=== PATIENT | male | born 1985 | race Caucasian/White ===

== ENCOUNTER 2016-05-18 16:21 | Inpatient (IN) | payer OTHER ==
--- NOTE | ~2016-05-18 | PN ---
Unit #: [id number] #: [id number] Patient: NINO THOMAS [id number] [facility] [address] [place] [address] [id number] I MR#: [id number] NAME: NINO THOMAS ROOM: 13 Age: 30 Sex: M Admission Date: 05/18/2016 : 1985 Attending Physician: Keke Torrez M.D. Admitting Physician: Keke Torrez M.D. Primary Care Physician: Primary Care Physician Vicki HERRERA NOTES DATE OF SERVICE: 05/25/2016 SUBJECTIVE Mr. Thomas is a 30-year-old white male, who was seen today and chart was reviewed and the case was discussed with the staff. He has been anxious, withdrawn, and rather seclusive to himself. Meanwhile, he has been cooperative with the treatment recommendations and has been taking the medications and tolerating them fairly well with no reported side effects. MENTAL STATUS EXAMINATION Young white male, who was casually dressed with fair personal hygiene, appears to be in no acute distress or discomfort. He was awake and alert on interaction with intact orientation. His mood was anxious with a congruent affect. He denies any suicidal or homicidal ideation. His insight and judgment remain slightly impaired. TREATMENT PLAN 1. We will continue him on his current medications and treatment protocol. We will monitor his response to the medications and make further adjustments as needed. 2. We will continue to follow up. Dictated by... Lenore Rios/perez TD: 05/25/2016 09:43 JOB #: [id number] [facility] PROGRESS NOTES X Keke Torrez MD PROGRESS NOTE
--- NOTE | ~2016-05-18 | PN ---
Unit #: [id number] #: [id number] Patient: NINO THOMAS [id number] [facility] [address] [place] [address] [id number] I MR#: [id number] NAME: NINO THOMAS ROOM: [facility] Age: 30 Sex: M Admission Date: 05/18/2016 : 1985 Attending Physician: Keke Torrez M.D. Admitting Physician: Keke Torrez M.D. Primary Care Physician: Primary Care Physician Vicki FLAHERTY PROGRESS NOTES DATE May 24, 2016 DISCUSSION Mr. Thomas is a 30-year-old white male, who was seen today and chart was reviewed and the case was discussed with the staff. He has been anxious, withdrawn, and rather seclusive to himself. Meanwhile, he has been cooperative with the treatment recommendations and he has been taking the medications, and tolerating them fairly well with no reported side effects. MENTAL STATUS EXAMINATION Young white male, who was casually dressed with fair personal hygiene and appears to be in no acute distress or discomfort. He was awake and alert on interaction with intact orientation. His mood is anxious with a congruent affect. His speech is slow and goal-directed. He denies any suicidal or homicidal ideations, and also denies any auditory or visual hallucinations. His insight and judgment remain slightly impaired. TREATMENT PLAN 1. We will continue him on his current medications and treatment protocol, and will monitor his response to the medications, and make further adjustments as needed. 2. We will continue to followup. Dictated by... Lenore Rios/porter TD: 05/25/2016 11:50 JOB #: [id number] Unit #: [id number] #: [id number] Patient: NINO THOMAS PROGRESS NOTES X Keke Torrez MD PROGRESS NOTE
--- NOTE | ~2016-05-18 | PN ---
Unit #: [id number] #: [id number] Patient: NINO THOMAS [id number] [facility] [address] [place] [address] [id number] I MR#: [id number] NAME: NINO THOMAS ROOM: 13 Age: 30 Sex: M Admission Date: 05/18/2016 : 1985 Attending Physician: Keke Torrez M.D. Admitting Physician: Keke Torrez M.D. Primary Care Physician: Primary Care Physician Vicki HERRERA NOTES DATE 05/19/2016 DISCUSSION Mr. Thomas is a 30-year-old, white male who was seen today and chart was reviewed and case was discussed with the staff. He has been anxious, withdrawn and rather seclusive to himself. Meanwhile, he has been cooperative with the treatment recommendations. He has been taking the medication and tolerating them fairly well with no reported side effects. MENTAL STATUS EXAM Young white male who was casually dressed with fair personal hygiene, appears to be in no acute distress or discomfort. He was awake and alert on interaction with intact orientation. His mood was anxious with congruent affect. He denies any suicidal or homicidal ideation. Also, denies any auditory or visual hallucinations. His insight and judgement remains slightly impaired. TREATMENT PLAN 1. We will continue him on his current medications and treatment protocol. We will monitor his response to the medication and make further adjustments as needed. 2. We will continue to follow up. Dictated by... Lenore Rios/eliana TD: 05/20/2016 00:40 JOB #: [id number] Unit #: [id number] #: [id number] Patient: NINO THOMAS PEREZREBECCA PROGRESS NOTES X Keke Torrez MD PROGRESS NOTE
--- NOTE | ~2016-05-18 | PN ---
Unit #: [id number] #: [id number] Patient: NINO THOMAS [id number] [facility] [address] [place] [address] [id number] I MR#: [id number] NAME: NINO THOMAS ROOM: 13 Age: 30 Sex: M Admission Date: 05/18/2016 : 1985 Attending Physician: Keke Torrez M.D. Admitting Physician: Keke Torrez M.D. Primary Care Physician: Primary Care Physician Vicki HERRERA NOTES DATE May 21, 2016 DISCUSSION Mr. Thomas is a 30-year-old white male, who was seen today and chart was reviewed and the case was discussed with the staff. He has been anxious, withdrawn, and rather seclusive to himself. Meanwhile, he has been taking the medications and tolerating them fairly well with no reported side effects. MENTAL STATUS EXAMINATION Young white male, who was casually dressed with fair personal hygiene and appears to be in no acute distress or discomfort. He was awake and alert on interaction with intact orientation. His mood was anxious with a congruent affect. His speech is slow and goal-directed. He denies any suicidal or homicidal ideations. His insight and judgment remain slightly impaired. TREATMENT PLAN 1. We will continue him on his current medications and treatment protocol, and will monitor his response to the medications, and make further adjustments as needed. 2. We will continue to followup. Dictated by... Lenore Rios/porter TD: 05/23/2016 12:26 JOB #: [id number] Unit #: [id number] #: [id number] Patient: NINO THOMAS PEREZREBECCA PROGRESS NOTES X Keke Torrez MD PROGRESS NOTE
--- NOTE | ~2016-05-18 | PN ---
Unit #: [id number] #: [id number] Patient: NINO FIELDS [id number] [facility] [address] [place] [address] [id number] I MR#: [id number] NAME: NINO FIELDS ROOM: 13 Age: 30 Sex: M Admission Date: 05/18/2016 : 1985 Attending Physician: Keke Torrez M.D. Admitting Physician: Keke Torrez M.D. Primary Care Physician: Primary Care Physician Vicki FLAHERTY PROGRESS NOTES DATE OF SERVICE: 05/22/2016 SUBJECTIVE Mr. Madrid is a 30-year-old white male, who was seen today and chart was reviewed and the case was discussed with the staff. He has been anxious, withdrawn, and rather seclusive to himself. Meanwhile, he has been pushing to leave and has been getting agitated and irritable and showing very poor insight into his situation and not taking any responsibility for his behavior. MENTAL STATUS EXAMINATION Young white male, who was casually dressed with fair personal hygiene, appears to be in no acute distress or discomfort. He was awake and alert on interaction with intact orientation. His mood was anxious with a congruent affect. His speech was slow and goal directed. He denies any suicidal or homicidal ideations. His insight and judgment remain slightly impaired. TREATMENT PLAN We will continue him on his current treatment protocol. We will monitor response and make further adjustments as needed. Dictated by... Lenore Rios/perez TD: 05/22/2016 12:44 JOB #: [id number] [facility] PROGRESS NOTES X Keke Torrez MD PROGRESS NOTE
--- NOTE | ~2016-05-18 | PA ---
Unit #: [id number] #: [id number] Patient: NINO FIELDS [id number] [facility] [address] [place] [address] [id number] I MR#: [id number] NAME: NINO FIELDS ROOM: P113 Age: 30 Sex: M Admission Date: 05/18/2016 : 1985 Date of Assessment: Attending Physician: Keke Torrez M.D. Admitting Physician: Keke Torrez M.D. Primary Care Physician: Primary Care Physician No PSYCHIATRIC ASSESSMENT DATE OF SERVICE 05/18/2016. IDENTIFYING DATA Mr. Lo is a 30-year-old single white male who is a resident of [place], [place] and was self-referred to the hospital who was accompanied by his mother and father. CHIEF COMPLAINT "I have been using methamphetamine ." HISTORY OF PRESENT ILLNESS Mr. Lo is a 30-year-old white male who was brought to the hospital by both of his parents because they are concerned about his bizarre behavior. The patient reports 2 years ago, he was on methamphetamine. He started seeing colors and reports he was anxious, began to rant on and off, and started having unrealistic experience and he was involved with colors and that he was supposed to follow those colors and was seen to be exhibiting acute psychosis with completely out of touch with reality behavior, significant paranoia and reports the [place] and [place] are after him because they want him to be in the cartel and the patient's size was really big and he was visually distraught and confused. Mother reports history of bipolar schizophrenia in the family and the patient has been peeping into windows and looking around bushes as if someone is following him. The patient has been digging in the yard and running off intermittently because he is delusional. He was seen to be unable to carry on meaningful conversation, was completely out of touch with reality, significant paranoia and delusional behavior. Family reports that he has been taking off in the middle of the night in the people's yards and digging in their grass and looking in their windows and as such, has been seen to be a significant danger to self and as such, recommendation for inpatient level of care was made. SUBSTANCE ABUSE HISTORY The patient has history of experimentation with alcohol, cocaine, opioids, methamphetamine and currently it appears methamphetamine has been his drug of choice as he reports that he has been using a gram of methamphetamine a day with the last use being a day before coming to the hospital. PAST PSYCHIATRIC HISTORY The patient has had history of inpatient psychiatric hospitalization at [facility] in 2016, however, review of the medical records indicated that currently is not active in any treatment program, is not Unit #: [id number] #: [id number] Patient: NINO FIELDS seeing a psychiatrist, and not taking any psychotropic medications. PAST MEDICAL HISTORY No acute or chronic medical illnesses. ALLERGIES No known medication allergies. CURRENT MEDICATIONS None. PERSONAL AND SOCIAL HISTORY A 30-year-old white male who reports that he is single, unemployed, and lives at home with his parents and has fairly decent social support system. MENTAL STATUS EXAMINATION Young white male who was casually dressed with fair personal hygiene, appears to be in no acute distress or discomfort. He was awake and alert on interaction with intact orientation to time, place, and person. His mood was anxious and depressed with a congruent affect. His speech was slow and restricted in content. His thought processes were disorganized with some looseness of associations and suicidal ideations. His insight and judgment remain significantly impaired. DIAGNOSTIC IMPRESSION Psychiatric: Bipolar disorder, most recent episode manic with psychosis and methamphetamine dependence, moderate. Medical: None. Stressors: Moderate psychosocial stressors. TREATMENT PLAN 1. The patient has presented with history of mood disorder and psychosis and substance abuse and has been decompensating and will need inpatient hospitalization for safety and stabilization. We will start him back on his home medications. We will adjust the medications and monitor response. 2. Supportive therapy was provided to the patient. 3. Safe, structured, and nourishing environment will be reported. ESTIMATED LENGTH OF STAY 5 to 7 days. ABILITY TO HELP SELF Limited. WILLINGNESS TO HELP SELF The patient appears to be willing to help self. STRENGTHS 1. Communicative. 2. Cooperative. PROBLEMS 1. Chronic dysphoric symptoms. 2. Chronic chemical dependency. 3. Poor social support system. DISCHARGE CRITERIA This will be contingent upon the patient's ability to show resolution of his psychosis and his ability to stay safe to himself, particularly after Unit #: [id number] #: [id number] Patient: MCGAHEY,NINO discharge from the hospital. Dictated by... Lenore Rios/perez TD: 05/19/2016 20:51 JOB #: [id number] PSYCHIATRIC ASSESSMENT X Keke Torrez MD PSYCHIATRIC ASSESSMENT
--- NOTE | ~2016-05-18 | DS ---
Unit #: [id number] #: [id number] [facility] [id number] [facility] [address] [place] [address] [id number] I MR#: [id number] NAME: NINO THOMAS ROOM: P113 Age: 30 Sex: M Admission Date: 05/18/2016 : 1985 Discharge Date: Attending Physician: Keke Torrez M.D. Primary Care Physician: Primary Care Physician No DISCHARGE SUMMARY IDENTIFYING DATA Mr. Thomas is a 30-year-old single white male who is a resident of [place], [place] and was self-referred to the hospital was accompanied by his mother. DISCHARGE DIAGNOSES Psychiatric: Bipolar disorder, most recent episode manic with psychosis; methamphetamine dependence, moderate. Medical: None. Stressors: Moderate psychosocial stressors. HISTORY OF PRESENT ILLNESS Please see initial psychiatric evaluation for details. PAST PSYCHIATRIC HISTORY Please see initial psychiatric evaluation for details. PAST MEDICAL HISTORY Please see initial psychiatric evaluation for details. HOSPITAL COURSE The patient was admitted to the adult psychiatric unit at [facility] melba Gutierrez and was oriented to the hospital environment. Routine p.r.n. medications were initiated and upon initial presentation, he was seen to be acutely psychotic with bizarre behavior, looseness of association, and very uncooperative with treatment recommendations and exhibiting significant psychosis and Zyprexa 10 mg b.i.d. was started here and he was seen to be refusing to take the medications in the beginning and then he was forcing to leave the hospital; however, he was encouraged to show better compliance with treatment recommendations. He finally started taking the medications and then seen to be calm and cooperative. No agitation, aggression, or irritability was noticed and as such, it was decided that he will be discharged home and will continue treatment on an outpatient basis. DISCHARGE MEDICATIONS Zyprexa 10 mg b.i.d. for depression. DISCHARGE CONDITION Stable. PROGNOSIS Fair. Unit #: [id number] #: [id number] Patient: NINO THOMAS Dictated by... Lenore Rios/perez TD: 05/26/2016 06:48 JOB #: [id number] DISCHARGE SUMMARY X Keke Torrez MD SUMMARY
--- NOTE | ~2016-05-18 | PN ---
Unit #: [id number] #: [id number] Patient: NINO HACKETT [id number] [facility] [address] [place] [address] [id number] MR#: [id number] NAME: NINO HACKETT ROOM: P113 Age: 30 Sex: M Admission Date: 05/18/2016 : 1985 Attending Physician: Keke Torrez M.D. Admitting Physician: Keke Torrez M.D. Primary Care Physician: Primary Care Physician Vicki HERRERA NOTES DATE OF SERVICE: 05/23/2016 SUBJECTIVE Mr. Hackett is a 30-year-old white male, who was seen today and chart was reviewed and the case was discussed with the staff. He has been anxious, withdrawn, though has not shown any agitation, irritability, or behavioral problems, and has been cooperative with treatment recommendations and has been taking the medications and tolerating them fairly well with no reported side effects. MENTAL STATUS EXAMINATION Young white male, who was casually dressed with fair personal hygiene, appears to be in no acute distress or discomfort. He was awake and alert on interaction with intact orientation. His mood was anxious with a congruent affect. His speech was slow and goal directed. He denies any suicidal or homicidal ideations. His insight and judgment remain slightly impaired. TREATMENT PLAN 1. We will continue him on his current medications and treatment protocol. We will monitor his response to medications and make further adjustments as needed. 2. We will continue to follow up. Dictated by... Lenore Rios/perez TD: 05/24/2016 04:59 JOB #: [id number] [facility] PROGRESS NOTES X Keke Torrez MD PROGRESS NOTE
--- NOTE | ~2016-05-18 | HP ---
Unit #: [id number] #: [id number] Patient: NINO FIELDS [id number] [place] [address] [id number] I MR#: [id number] NAME: NINO FIELDS ROOM: 13 Age: 30 Sex: M Admission Date: 05/18/2016 : 1985 Attending Physician: Keke Torrez M.D. Admitting Physician: Keke Torrez M.D. Primary Care Physician: Primary Care Physician No HISTORY AND PHYSICAL HISTORY OF PRESENT ILLNESS Nino is a 30-year-old admitted to [address] [place] [address] because of his drug use and psychotic behavior. He is a poor historian, so his history is taken from his chart. PAST MEDICAL HISTORY Long history of illicit substance abuse to include methamphetamine and IV drugs. PAST SURGICAL HISTORY 1. Right hand. 2. PE tubes. ALLERGIES No known drug allergies. SOCIAL HISTORY Smokes one pack per day. Drinks alcohol rarely. Has a long history of polysubstance abuse to include methamphetamine and IV drugs. FAMILY HISTORY Medically noncontributory. REVIEW OF SYSTEMS He does not answer any questions appropriately. There are no reports of nausea, vomiting, or diarrhea. He has had no cough or increase temperature. CURRENT MEDICATIONS 1. Zyprexa 10 mg b.i.d. 2. Thorazine 50 mg q. 6 hours p.r.n. 3. Milk of Magnesia p.r.n. 4. Maalox p.r.n. 5. Tylenol p.r.n. 6. Nicotine patch 14 mg q. day. PHYSICAL EXAMINATION GENERAL: Alert, well nourished. No apparent distress. VITAL SIGNS: Blood pressure 110/66, heart rate 80, respirations 16, and temperature 98.6. WEIGHT: 151. HEIGHT: 6 feet 1 inches. SKIN: Warm and dry without rash or lesion. Unit #: [id number] #: [id number] Patient: NINO FIELDS HEENT: Normocephalic. TMs not viewed. Oral and nasal passages clear. Conjunctivae clear. PERRLA. EOMs intact. NECK: Supple without lymphadenopathy or thyromegaly. HEART: Regular rate and rhythm without murmur. LUNGS: Clear. ABDOMEN: Soft, nontender. : Not done. EXTREMITIES: No evidence of cyanosis, clubbing or edema. Moves all without focal deficit. NEUROLOGICAL: Unable to complete extended exam. Does move all extremities without focal deficit. Hand assistant tennis coach is equal and gait is normal. IMPRESSION Psychiatric admission. RECOMMENDATIONS PSYCHIATRIC: Per psychiatrist. MEDICAL: I see no contraindication to participate in this facility's activities. MEDICAL PROGNOSIS Good. MEDICAL CONDITION Stable. Dictated by... Sherry Washburn P.A.-C. for Lenore Torres/uriah TD: 05/19/2016 14:26 JOB #: [id number] HISTORY AND PHYSICAL X Sherry Washburn X HISTORY AND PHYSICAL
--- NOTE | ~2016-05-18 | PN ---
Unit #: [id number] #: [id number] Patient: NINO THOMAS [id number] [facility] [address] [place] [address] [id number] MR#: [id number] NAME: NINO THOMAS ROOM: 13 Age: 30 Sex: M Admission Date: 05/18/2016 : 1985 Attending Physician: Keke Torrez M.D. Admitting Physician: Keke Torrez M.D. Primary Care Physician: Primary Care Physician Vicki HERRERA NOTES DATE 05/20/2016 DISCUSSION Mr. Thomas is a 30-year-old white male who was seen today and chart was reviewed and case was discussed with the staff. He has been anxious, withdrawn, restless, seclusive to himself. Meanwhile, he has been cooperative with treatment recommendations and has been taking medications and tolerating them fairly well. MENTAL STATUS EXAMINATION Young white male who was casually dressed with fair personal hygiene and appears to be in no acute distress or discomfort. He was awake and alert on interaction with intact orientation. His mood was anxious and depressed with congruent affect. He denies any suicidal or homicidal ideation and also denies any auditory or visual hallucinations. His insight and judgement remains slightly impaired. TREATMENT PLAN 1. Will continue his current medications and treatment protocol. Will monitor his response to the medications and make further adjustments as needed. 2. Will continue to follow up. Dictated by... Lenore Rios/amanda TD: 05/20/2016 16:57 JOB #: [id number] Unit #: [id number] #: [id number] Patient: NINO THOMAS PEREZREBECCA PROGRESS NOTES X Keke Torrez MD PROGRESS NOTE
[2016-05-19 09:56] LABS: BASOPHIL% 0.8 % (0-2.5); EOSINOPHIL# 0.2 X10e3 (0-0.7); EOSINOPHIL% 4.2 % (0.0-7.0); HEMOGLOBIN 16.1 gm/dL (13.0-16.0); LYMPHOCYTE# 1.9 X10e3 (1.0-3.5); MEAN CELL VOLUME 95.2 FL (83-96); MEAN CORPUSCULAR HEMOGLOBIN 32.6 PG (28-34); MEAN CORPUSCULAR HGB CONC 34.2 g/dL (30-36); MEAN PLATELET VOLUME 8.6 FL (6.5-11.5); MONOCYTE# 0.5 X10e3 (0-1.0); NEUTROPHIL# 2.7 X10e3 (1.5-7.1); PLATELET COUNT 183 X10e3 (140-420); RED BLOOD COUNT 4.94 X10e (3.90-5.60); RED CELL DISTRIBUTION WIDTH 13.2 % (11.0-15.5); WHITE BLOOD COUNT 5.4 X10e3 (4.0-10.5)
[2016-05-19 10:02] LABS: DIFF IND NO
[2016-05-19 10:09] LABS: THYROID STIMULATING HORMONE 0.47 uIU/ml (0.34-5.60)
[2016-05-19 10:16] LABS: FREE THYROXIN (T4) 0.91 ng/dL (0.58-1.64)
[2016-05-19 10:27] LABS: ALBUMIN SERUM 4.6 g/dL (3.5-5.0); ALKALINE PHOSPHATASE 72 U/L (32-92); ALT (SGPT) 15 U/L (10-40); AST (SGOT) 18 U/L (10-42); BLOOD UREA NITROGEN 11 mg/dL (9-23); BUN/CREATININE RATIO 9.16; CALCIUM SERUM 10.4 mg/dL (8.4-10.2); CARBON DIOXIDE 28 mmol/L (22-31); CHLORIDE 104 mmol/L (100-111); CREATININE SERUM 1.2 mg/dL (0.6-1.4); GLOM FILT RATE Estimated ABOVE60 mL/min (>60); GLUCOSE FASTING 91 mg/dL (70-110); PROTEIN TOTAL SERUM 7.7 g/dL (6.0-8.3); SODIUM 143 mmol/L (135-145)
== END 2016-05-26 12:00 | DRG 885 ==
LOC: P1S 16:21
PROVIDERS: Psychiatry & Neurology Psychiatry
DX: F31.2 Bipolar disorder, current episode manic severe with psychotic features (principal); F15.20 Other stimulant dependence, uncomplicated; F17.210 Nicotine dependence, cigarettes, uncomplicated
CPT/HCPCS: 80053; 84439; 84443; 85025

== ENCOUNTER 2016-08-10 16:19 | Inpatient (IN) | payer OTHER ==
--- NOTE | ~2016-08-10 | PA ---
Unit #: [id number] #: [id number] Patient: NINO THOMAS [id number] [facility] [address] [place] [address] [id number] MR#: [id number] NAME: NINO THOMAS ROOM: P122 Age: 30 Sex: M Admission Date: 08/10/2016 : 1985 Date of Assessment: 08/11/2016 Attending Physician: Keke Torrez M.D. Admitting Physician: Keke Torrez M.D. Primary Care Physician: Generic Doctor Not In System PSYCHIATRIC ASSESSMENT DATE OF SERVICE 08/11/2016. IDENTIFYING DATA Mr. Thomas is a 30-year-old single white male who is a resident of [place], [place], and was brought to the hospital by his father on a voluntary basis. CHIEF COMPLAINT "Just stressed out." HISTORY OF PRESENT ILLNESS Mr. Thomas is a 30-year-old white male who was self-referred to the hospital. 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 The patient admits being on drugs, amphetamines "a lot a day." He also reports that he used Lortab and a joint today and he has not been able to work all week. He works for a moving company and was seen to be paranoid and having some delusions probably due to methamphetamine use and his last use of methamphetamine was a couple of days ago. He reports that he has been snorting and eating methamphetamine, and reports that his cousin has been leaving clues for him and was seen to be very anxious, irritable, agitated, and exhibiting significant paranoia and delusional behavior, and also reports having suicidal ideation as such recommendation for inpatient level of care for safety and stabilization was made. The patient was transferred to us. SUBSTANCE ABUSE HISTORY The patient reports extensive history of substance abuse and dependence including history of experimentation with alcohol, cannabis, cocaine, acid, opioids, methamphetamine, and benzodiazepines, and currently, it appears that methamphetamine has been his drug of choice though he has been using it along with cannabis. PAST PSYCHIATRIC HISTORY The patient has a history of multiple inpatient psychiatric hospitalizations at [facility] in addition to being at [facility], and has been diagnosed and treated for mood disorder, (1) with psychosis Unit #: [id number] #: [id number] Patient: NINO THOMAS and review of the medical records indicate that he is supposed to be on Zyprexa, but has been noncompliant with medications and as such, has been decompensating. PAST MEDICAL HISTORY No acute or chronic medical illnesses. ALLERGIES No known medication allergies. PERSONAL AND SOCIAL HISTORY A 30-year-old white male who reports that he is single and unemployed and is currently describing himself to be homeless. MENTAL STATUS EXAMINATION Young white male who was casually dressed with fair personal hygiene, appears to be in no acute distress or discomfort. He was awake and alert on interaction with intact orientation to time, place, and person. His mood was anxious and depressed with congruent affect. His speech was slow and restricted in content. His thought processes were disorganized with some looseness of associations and flight of ideas, and paranoid ideations and delusional behavior. His insight and judgment remain significantly impaired. DIAGNOSTIC IMPRESSION Psychiatric: Bipolar disorder, most recent episode depressed, recurrent, moderate, with psychosis; methamphetamine dependence, moderate. Medical: None. Stressors: Moderate psychosocial stressors. TREATMENT PLAN 1. The patient has presented with history of mood disorder and psychosis and has been decompensating, and we will need inpatient hospitalization for detoxification, safety, and stabilization. We will start him back on home medications. We will adjust the medications and monitor response. 2. Supportive therapy was provided to the patient. ESTIMATED LENGTH OF STAY 4 to 5 days. ABILITY TO HELP SELF Limited. WILLINGNESS TO HELP SELF The patient appears to be willing to help self. STRENGTHS 1. Communicative. 2. Cooperative. PROBLEM LIST 1. Chronic dysphoric symptoms. 2. Chronic chemical dependency. 3. Poor social support system. DISCHARGE CRITERIA This will be contingent upon the patient's ability to show resolution of his psychosis and his ability to stay safe to himself, particularly after discharge from the hospital. Unit #: [id number] #: [id number] Patient: NINO THOMAS Dictated by... Lenore Rios/perez TD: 08/11/2016 06:55 JOB #: [id number] PSYCHIATRIC ASSESSMENT Page 1 of 1 X Keke Torrez MD PSYCHIATRIC ASSESSMENT
--- NOTE | ~2016-08-10 | HP ---
Unit #: [id number] #: [id number] Patient: NINO FIELDS [id number] [place] [address] [id number] I MR#: [id number] NAME: NINO FIELDS ROOM: P122 Age: 30 Sex: M Admission Date: 08/10/2016 : 1985 Attending Physician: Keke Torrez M.D. Admitting Physician: Keke Torrez M.D. Primary Care Physician: Generic Doctor Not In System HISTORY AND PHYSICAL HISTORY OF PRESENT ILLNESS Nino is a 30 year old admitted to [address] [place] [address] with depression and verbalizing wanting to hurt himself. PAST MEDICAL HISTORY History of poly illicit substance abuse to include methamphetamine. History of IV drugs. PAST SURGICAL HISTORY 1. Right hand 2. PE tubes ALLERGIES No known drug allergies. SOCIAL HISTORY Smokes one pack per day. Drinks alcohol rarely. Has a long history of polysubstance abuse to include IV methamphetamine. FAMILY HISTORY Medically noncontributory. REVIEW OF SYSTEMS He does not answer questions appropriately. There are no reports of nausea, vomiting or diarrhea. He has had no cough or increased temperature. CURRENT MEDICATIONS 1. Vistaril p.r.n. 2. Desyrel p.r.n. 3. Milk of Magnesia p.r.n. 4. Maalox p.r.n. 5. Tylenol p.r.n. 6. Thorazine p.r.n. 7. Zyprexa 10 mg b.i.d. 8. Nicotine patch 14 mg daily PHYSICAL EXAMINATION GENERAL: Alert, well-nourished, in no apparent distress. VITAL SIGNS: Blood pressure 114/68, heart rate 76, respirations 16, temperature 98.6. WEIGHT: 170 pounds. Unit #: [id number] #: [id number] Patient: NINO FIELDS HEIGHT: 6'1". SKIN: Warm and dry without rash or lesion. HEENT: Normocephalic. TMs not viewed. Oral and nasal passages clear. Conjunctivae clear. Pupils equal, round and reactive to light and accommodation. Extraocular movements intact. NECK: Supple without lymphadenopathy or thyromegaly. HEART: Regular rate and rhythm without murmur. LUNGS: Clear. ABDOMEN: Soft, nontender. : Not done. EXTREMITIES: No evidence of cyanosis, clubbing or edema. Moves all extremities without focal deficit. NEUROLOGICAL: Grossly within normal limits. Cranial Nerves: II: Visual duong are intact. III, IV AND : Extraocular movements are intact. Pupils are equal, round and reactive to light. V: Facial sensation is grossly normal. VII: Facial movements and expression are normal. VIII: Auditory acuity grossly intact. IX, X: Uvula is midline. Phonation is normal. XI: Patient shrugs shoulders and turns head normally. XII: Tongue protrudes in the midline. Sensory and Motor Function: Sensory and motor sensation is grossly normal. Motor: moves all extremities well. Coordination: Gait is normal. Deep Tendon Reflexes: Intact. IMPRESSION Psychiatric admission RECOMMENDATIONS PSYCHIATRIC: Per psychiatrist. MEDICAL: I see no contraindications to participating in facility's activities. MEDICAL PROGNOSIS Good. MEDICAL CONDITION Stable. Dictated by... Sherry Washburn P.A.-C. for Lenore Torres/eliana TD: 08/12/2016 00:04 JOB #: [id number] Unit #: [id number] #: [id number] Patient: NINO FIELDS HISTORY AND PHYSICAL Page 1 of 1 X Sherry Washburn HISTORY AND PHYSICAL
--- NOTE | ~2016-08-10 | PN ---
Unit #: [id number] #: [id number] Patient: NINO THOMAS [id number] [facility] [address] [place] [address] [id number] I MR#: [id number] NAME: NINO THOMAS ROOM: P122 Age: 30 Sex: M Admission Date: 08/10/2016 : 1985 Attending Physician: Keke Torrez M.D. Admitting Physician: Keke Torrez M.D. Primary Care Physician: Margret Doctor Not In System [facility] PROGRESS NOTES DATE 08/12/2016 DISCUSSION Mr. Thomas is a 30-year-old white male with mood disorder who was seen today and chart was reviewed and case was discussed with the staff who report patient remains anxious, withdrawn and seclusive to himself. Upon approach, patient was unable to make eye contact or make conversation and has been very seclusive to himself with blunted affect and minimal interaction and has had persistent depressive symptoms. MENTAL STATUS EXAMINATION Young white male who was casually dressed with fair personal hygiene and appears to be in no acute distress or discomfort. He was awake and alert on interaction with intact orientation. His mood was anxious and depressed with congruent affect. His speech is slow and restricted in content. He reports having suicidal ideation but denies any homicidal ideation. His insight and judgement remains significantly impaired. TREATMENT PLAN 1. Will continue on his current medications and treatment protocol and will monitor his response to the medications and make further adjustments as needed. 2. Will continue to follow up. Dictated by... Lenore Rios/amanda TD: 08/12/2016 20:35 JOB #: [id number] Unit #: [id number] #: [id number] Patient: NINO THOMAS PROGRESS NOTES Page 1 of 1 X Keke Torrez MD X PROGRESS NOTE
--- NOTE | ~2016-08-10 | PN ---
Unit #: [id number] #: [id number] Patient: NINO THOMAS [id number] [facility] [address] [place] [address] [id number] I MR#: [id number] NAME: NINO THOMAS ROOM: P122 Age: 30 Sex: M Admission Date: 08/10/2016 : 1985 Attending Physician: Keke Torrez M.D. Admitting Physician: Keke Torrez M.D. Primary Care Physician: Margret Doctor Not In System [facility] PROGRESS NOTES DATE 08/16/2016 DISCUSSION Mr. Thomas is a 30-year-old white male who was seen today and chart was reviewed and case was discussed with the staff. He has been anxious, withdrawn, depressed and rather seclusive to himself. Meanwhile, he has been taking medications and tolerating them fairly well with no reported side effects. MENTAL STATUS EXAMINATION Young white male who was casually dressed with fair personal hygiene and appears to be in no acute distress or discomfort. He was awake and alert on interaction with intact orientation. His mood was anxious with congruent affect. He denies any suicidal or homicidal ideation and also denies any auditory or visual hallucinations. His insight and judgement remains slightly impaired. TREATMENT PLAN 1. Will continue on his current medications and treatment protocol. Will monitor his response to the medications and make further adjustments as needed. 2. Will continue to follow up. Dictated by... Lenore Rios/amanda TD: 08/16/2016 22:17 JOB #: [id number] Unit #: [id number] #: [id number] Patient: NINO THOMAS PROGRESS NOTES Page 1 of 1 X Keke Torrez MD X PROGRESS NOTE
--- NOTE | ~2016-08-10 | DS ---
Unit #: [id number] #: [id number] Patient: [facility]INO THOMAS [id number] [facility] [place] [address] [id number] I MR#: [id number] NAME: NINO THOMAS ROOM: [facility] Age: 30 Sex: M Admission Date: 08/10/2016 : 1985 Discharge Date: 08/17/2016 Attending Physician: Keke Torrez M.D. Primary Care Physician: Generic Doctor Not In System DISCHARGE SUMMARY IDENTIFYING DATA Mr. Thomas is a 30-year-old single white male, who is a resident of [place], [place], and was brought to the hospital by his father on a voluntary basis. DISCHARGE DIAGNOSES Psychiatric: Bipolar disorder, most recent episode depressed, recurrent, moderate, without psychotic features. Medical: None. Stressors: Moderate psychosocial stressors. HISTORY OF PRESENT ILLNESS Please see initial psychiatric evaluation for details. PAST PSYCHIATRIC HISTORY Please see initial psychiatric evaluation for details. PAST MEDICAL HISTORY Please see initial psychiatric evaluation for details. HOSPITAL COURSE The patient was admitted to the adult psychiatric unit at [facility] melba Gutierrez and was oriented to the hospital environment. Routine p.r.n. medications were initiated, and he was started back on his home medications and medications were adjusted. However, it is noticed that the patient was exhibiting very bizarre behavior, would not interact or socialize and was not really interested much in treatment as he would just eat and sleep, and would not interact with me or follow up with any treatment recommendations; however, Zyprexa was maintained at 10 mg b.i.d. and with no further adjustments being made in his medication, it was decided that he will be discharged home and will continue treatment on an outpatient basis. DISCHARGE MEDICATIONS Zyprexa 10 mg b.i.d. for bipolar. DISCHARGE CONDITION Stable. PROGNOSIS Fair. Dictated by... Unit #: [id number] #: [id number] Patient: NINO THOMAS Keke Torrez M.D. IAA/modl TD: 08/17/2016 06:48 JOB #: [id number] DISCHARGE SUMMARY Page 1 of 1 X Keke Torrez MD DISCHARGE SUMMARY
--- NOTE | ~2016-08-10 | PN ---
Unit #: [id number] #: [id number] Patient: NINO HACKETT [id number] [facility] [address] [place] [address] [id number] I MR#: [id number] NAME: NINO HACKETT ROOM: P122 Age: 30 Sex: M Admission Date: 08/10/2016 : 1985 Attending Physician: Keke Torrez M.D. Admitting Physician: Keke Torrez M.D. Primary Care Physician: Generic Doctor Not In System [facility] PROGRESS NOTES DATE OF SERVICE: 08/14/2016 SUBJECTIVE Mr. Hackett is a 30-year-old white male, who was seen today and chart was reviewed and case was discussed with the staff. He has been very seclusive to himself and has not been interacting or socializing. He has not shown any agitation or aggression. MENTAL STATUS EXAMINATION Young white male, who was casually dressed with fair personal hygiene, appears to be in no acute distress or discomfort. He was awake and alert on interaction with intact orientation. His mood was anxious with congruent affect. He denies any suicidal or homicidal ideation. His insight and judgment remain slightly impaired. TREATMENT PLAN 1. We will continue him on his current medications and treatment protocol. We will monitor his response to the medications and make further adjustments as needed. 2. We will continue to follow up. Dictated by... Lenore Rios/perez TD: 08/14/2016 15:18 JOB #: [id number] [facility] PROGRESS NOTES Page 1 of 1 X Keke Torrez MD PROGRESS NOTE
--- NOTE | ~2016-08-10 | PN ---
Unit #: [id number] #: [id number] Patient: NINO HACKETT [id number] [facility] [address] [place] [address] [id number] I MR#: [id number] NAME: NINO HACKETT ROOM: P122 Age: 30 Sex: M Admission Date: 08/10/2016 : 1985 Attending Physician: Keke Torrez M.D. Admitting Physician: Keke Torrez M.D. Primary Care Physician: Margret Doctor Not In System [facility] PROGRESS NOTES DATE OF SERVICE: 08/13/2016 SUBJECTIVE Mr. Hackett is a 30-year-old white male, who was seen today and chart was reviewed and the case was discussed with the staff. He has been anxious, withdrawn, and rather seclusive to himself. Meanwhile, he has been cooperative with the treatment recommendations and has been taking the medications and tolerating them fairly well with no reported side effects. MENTAL STATUS EXAMINATION Young white male who was casually dressed with fair personal hygiene, appears to be in no acute distress or discomfort. He was awake and alert on interaction with intact orientation. His mood was anxious with a congruent affect. He denies any suicidal or homicidal ideation. His insight and judgment remain slightly impaired. TREATMENT PLAN 1. We will continue him on his current medications and treatment protocol. We will monitor his response to the medications and make further adjustments as needed. 2. We will continue to follow up. Dictated by... Lenore Rios/perez TD: 08/14/2016 14:37 JOB #: [id number] [facility] PROGRESS NOTES Page 1 of 1 X Keke Torrez MD PROGRESS NOTE
--- NOTE | ~2016-08-10 | PN ---
Unit #: [id number] #: [id number] Patient: NINO THOMAS [id number] [facility] [address] [place] [address] [id number] I MR#: [id number] NAME: NINO THOMAS ROOM: P122 Age: 30 Sex: M Admission Date: 08/10/2016 : 1985 Attending Physician: Keke Torrez M.D. Admitting Physician: Keke Torrez M.D. Primary Care Physician: Margret Doctor Not In System [facility] PROGRESS NOTES DATE 08/15/2016 DISCUSSION Mr. Thomas is a 30-year-old, white male who was seen today and chart was reviewed and case was discussed with the staff. He has been anxious, withdrawn rather seclusive to himself. Meanwhile, he has been cooperative with treatment recommendations. He has been taking medications and tolerating them fairly well though has been very withdrawn and seclusive to himself. MENTAL STATUS EXAM Young white male who was casually dressed with fair personal hygiene, appears to be in no acute distress or discomfort. He was awake and alert on interaction with intact orientation. His mood was anxious and depressed with congruent affect. His speech is slow and restricted in content. He denies any current suicidal or homicidal ideation. Also, denies any auditory or visual hallucinations. His insight and judgement remains significantly impaired. TREATMENT PLAN 1. We will continue him on his current medications and treatment protocol. We will monitor his response to the medication and make further adjustments as needed. 2. We will continue to follow up. Dictated by... Lenore Rios/eliana TD: 08/16/2016 03:09 JOB #: [id number] Unit #: [id number] #: [id number] Patient: NINO THOMAS PROGRESS NOTES Page 1 of 1 X Keke Torrez MD PROGRESS NOTE
[2016-08-11 10:04] LABS: BASOPHIL# 0.1 X10e3 (0-0.3); BASOPHIL% 1.5 % (0-2.5); EOSINOPHIL# 0.2 X10e3 (0-0.7); EOSINOPHIL% 5.2 % (0.0-7.0); HEMATOCRIT 41.4 % (38.0-50.0); LYMPHOCYTE# 1.6 X10e3 (1.0-3.5); LYMPHOCYTE% 38.7 % (17.0-45.0); MEAN CORPUSCULAR HEMOGLOBIN 32.4 PG (28-34); MEAN CORPUSCULAR HGB CONC 33.7 g/dL (30-36); MEAN PLATELET VOLUME 8.2 FL (6.5-11.5); MONOCYTE# 0.4 X10e3 (0-1.0); MONOCYTE% 9.7 % (3.0-12.0); NEUTROPHIL# 1.8 X10e3 (1.5-7.1); NEUTROPHIL% 44.9 % (40-75); PLATELET COUNT 168 X10e3 (140-420); RED BLOOD COUNT 4.31 X10e (3.90-5.60); RED CELL DISTRIBUTION WIDTH 13.6 % (11.0-15.5); WHITE BLOOD COUNT 4.1 X10e3 (4.0-10.5)
[2016-08-11 10:05] LABS: DIFF IND NO
[2016-08-11 10:22] LABS: BILIRUBIN,TOTAL 0.9 mg/dL (0.2-2.0); BUN/CREATININE RATIO 10.83; CALCIUM SERUM 9.2 mg/dL (8.4-10.2); CREATININE SERUM 1.2 mg/dL (0.6-1.4); GLOM FILT RATE Estimated 80.7 mL/min (>60); POTASSIUM 4.4 mmol/L (3.5-5.1); PROTEIN TOTAL SERUM 6.4 g/dL (6.0-8.3)
== END 2016-08-17 10:25 | DRG 885 ==
LOC: P1S 20:04
PROVIDERS: Psychiatry & Neurology Psychiatry
PROC: HZ2ZZZZ Detoxification Services for Substance Abuse Treatment (ICD-10-PCS; principal; 2016-08-10)
DX: F31.32 Bipolar disorder, current episode depressed, moderate (principal); R45.851 Suicidal ideations; F15.20 Other stimulant dependence, uncomplicated; Z59.0 Homelessness; Z91.14 Patient's other noncompliance with medication regimen; F17.210 Nicotine dependence, cigarettes, uncomplicated
CPT/HCPCS: 80053; 85025

== ENCOUNTER 2016-08-30 14:00 | Inpatient (IN) | payer OTHER ==
--- NOTE | ~2016-08-30 | PN ---
Unit #: [id number] #: [id number] Patient: NINO THOMAS [id number] [facility] [address] [place] [address] [id number] I MR#: [id number] NAME: NINO THOMAS ROOM: P131 Age: 30 Sex: M Admission Date: 08/30/2016 : 1985 Attending Physician: Keke Torrez M.D. Admitting Physician: Keke Torrez M.D. Primary Care Physician: Primary Care Physician Vicki FLAHERTY PROGRESS NOTES DATE 09/01/2016 DISCUSSION Mr. Thomas is a 30-year-old white male who was seen today and chart was reviewed and case was discussed with the staff. He has been anxious, withdrawn and rather seclusive to himself. Meanwhile, he has been cooperative with treatment recommendations and has been taking medications and tolerating them fairly well with no reported side effects. MENTAL STATUS EXAMINATION Young white male who was casually dressed with fair personal hygiene and appears to be in no acute distress or discomfort. He was awake and alert with impaired attention and concentration. His mood was anxious with congruent affect. His speech is slow and restricted in content. His thought processes were disorganized with some looseness of associations. His insight and judgement remains significantly impaired. TREATMENT PLAN 1. Will continue on his current medications and treatment protocol. Will monitor his response to the medications and make further adjustments as needed. 2. Will continue to follow up. Dictated by... Lenore Rios/amanda TD: 09/01/2016 22:36 JOB #: [id number] Unit #: [id number] #: [id number] Patient: NINO THOMAS PROGRESS NOTES Page 1 of 1 X Keke Torrez MD PROGRESS NOTE
--- NOTE | ~2016-08-30 | PN ---
Unit #: [id number] #: [id number] Patient: NINO THOMAS [id number] [facility] [address] [place] [address] [id number] MR#: [id number] NAME: NINO THOMAS ROOM: 31 Age: 30 Sex: M Admission Date: 08/30/2016 : 1985 Attending Physician: Keke Torrez M.D. Admitting Physician: Keke Torrez M.D. Primary Care Physician: Primary Care Physician Vicki FLAHERTY PROGRESS NOTES DATE September 04, 2016 DISCUSSION Mr. Thomas is a 30-year-old white male, who was seen today and chart was reviewed and the case was discussed with the staff. He has been anxious, withdrawn, and rather seclusive to himself. Meanwhile, he has been cooperative with the treatment recommendations and he has been taking the medications and tolerating them fairly well. MENTAL STATUS EXAMINATION Young white male, who was casually dressed with fair personal hygiene and appears to be in no acute distress or discomfort. He was awake and alert on interaction with intact orientation. His mood is anxious with a congruent affect. He denies any suicidal or homicidal ideations. His insight and judgment remain slightly impaired. TREATMENT PLAN 1. We will continue him on his current treatment protocol, and will monitor his response to the medications, and make further adjustments as needed. 2. We will continue to followup. Dictated by... Lenore Rios/porter TD: 09/05/2016 09:08 JOB #: [id number] Unit #: [id number] #: [id number] Patient: NINO THOMAS PROGRESS NOTES Page 1 of 1 X Keke Torrez MD PROGRESS NOTE
--- NOTE | ~2016-08-30 | PN ---
Unit #: [id number] #: [id number] Patient: NINO THOMAS [id number] [facility] [address] [place] [address] [id number] I MR#: [id number] NAME: NINO THOMAS ROOM: P131 Age: 30 Sex: M Admission Date: 08/30/2016 : 1985 Attending Physician: Keke Torrez M.D. Admitting Physician: Keke Torrez M.D. Primary Care Physician: Primary Care Physician Vicki FLAHERYT PROGRESS NOTES DATE 08/31/2016 DISCUSSION Mr. Thomas is a 30-year-old, white male who was seen today and chart was reviewed and case was discussed with the staff. He has been anxious, withdrawn and rather seclusive to himself. Meanwhile, he has been cooperative with treatment recommendations. He has been taking medications and tolerating them fairly well with no reported side effects. MENTAL STATUS EXAM Young white male who was casually dressed with fair personal hygiene, appears to be in no acute distress or discomfort. He was awake and alert on interaction with intact orientation. His mood was anxious with congruent affect. His speech was slow and restricted in content. His thought processes were disorganized with some looseness of associations, thought blocking, paranoid ideation. His insight and judgement remains significantly impaired. TREATMENT PLAN 1. We will continue him on his current treatment protocol as well as his medication including Zyprexa 10 mg twice a day. We will monitor his response . Dictated by... Lenore Rios/eliana TD: 09/01/2016 01:13 JOB #: [id number] Unit #: [id number] #: [id number] Patient: NINO THOMAS PROGRESS NOTES Page 1 of 1 X Keke Torrez MD PROGRESS NOTE
--- NOTE | ~2016-08-30 | PN ---
Unit #: [id number] #: [id number] Patient: NINO HACKETT [id number] [facility] [address] [place] [address] [id number] MR#: [id number] NAME: NINO HACKETT ROOM: P131 Age: 30 Sex: M Admission Date: 08/30/2016 : 1985 Attending Physician: Keke Torrez M.D. Admitting Physician: Keke Torrez M.D. Primary Care Physician: Primary Care Physician Vicki HERRERA NOTES DATE OF SERVICE: 09/03/2016 SUBJECTIVE Mr. Hackett is a 30-year-old white male, who was seen today and chart was reviewed and case was discussed with the staff. He has been anxious, withdrawn, and rather seclusive to himself. Meanwhile, he has been cooperative with treatment recommendations and taking the medications and tolerating them fairly well with no reported side effects. MENTAL STATUS EXAMINATION Young white male, who was casually dressed with fair personal hygiene, appears to be in no acute distress or discomfort. He was awake and alert with impaired attention and concentration. His mood was anxious with a congruent affect. He denies any suicidal or homicidal ideation. His insight and judgment remain slightly impaired. TREATMENT PLAN 1. We will continue his current treatment protocol. We will monitor the response and make further adjustments as needed. 2. We will continue to follow up. Dictated by... Lenore Rios/jerril TD: 09/04/2016 23:38 JOB #: [id number] [facility] PROGRESS NOTES Page 1 of 1 X Keke Torrez MD PROGRESS NOTE
--- NOTE | ~2016-08-30 | PN ---
Unit #: [id number] #: [id number] Patient: NINO THOMAS [id number] [facility] [address] [place] [address] [id number] MR#: [id number] NAME: NINO THOMAS ROOM: P131 Age: 30 Sex: M Admission Date: 08/30/2016 : 1985 Attending Physician: Keke Torrez M.D. Admitting Physician: Keke Torrez M.D. Primary Care Physician: Primary Care Physician Vicki HERRERA NOTES DATE 09/02/2016 DISCUSSION Mr. Thomas is a 30-year-old white male who was seen today and chart was reviewed and case was discussed with the staff. He has been anxious, withdrawn though has not shown any agitation, irritability and has been cooperative with treatment recommendations and has been exhibiting significant depressive symptoms and has been talking about not feeling good and feeling hopeless and helpless but care about his future and situation outside of the hospital. He has been, however, taking medications and tolerating them fairly well with no reported side effects. MENTAL STATUS EXAMINATION Young white male who was casually dressed with fair personal hygiene and appears to be in no acute distress or discomfort. He was awake and alert with impaired attention and concentration. His mood was anxious with congruent affect. His speech is slow and restricted in content. He denies any suicidal or homicidal ideation. His insight and judgement remains slightly impaired. TREATMENT PLAN 1. Will continue on his current medications and treatment protocol. Will monitor his response to the medications and make further adjustments as needed. 2. Will continue to follow up. Dictated by... Lenore Rios/amanda TD: 09/02/2016 21:41 JOB #: [id number] Unit #: [id number] #: [id number] Patient: NINO THOMAS PROGRESS NOTES Page 1 of 1 X Keke Torrez MD PROGRESS NOTE
--- NOTE | ~2016-08-30 | HP ---
Unit #: [id number] #: [id number] Patient: NINO FIELDS [id number] [facility] [address] [place] [address] [id number] MR#: [id number] NAME: NINO FIELDS ROOM: P131 Age: 30 Sex: M Admission Date: 08/30/2016 : 1985 Attending Physician: Keke Torrez M.D. Admitting Physician: Keke Torrez M.D. Primary Care Physician: Primary Care Physician No HISTORY AND PHYSICAL Nino is a 30 year old admitted to [address] [place] [address] with depression and verbalizing wanting to hurt himself. He was just discharged from this facility after treatment for the same. Patient was seen and H and P dated 08/11/16 was reviewed. This is current. No changes. Please see H and P dated 08/11/16. Dictated by... Sherry Washburn P.A.-C. for Lenore Torres/amanda TD: 08/30/2016 21:56 JOB #: [id number] HISTORY AND PHYSICAL Page 1 of 1 X Sherry Washburn HISTORY AND PHYSICAL
--- NOTE | ~2016-08-30 | PN ---
Unit #: [id number] #: [id number] Patient: NINO FIELDS [id number] [facility] [address] [place] [address] [id number] MR#: [id number] NAME: NINO FIELDS ROOM: P131 Age: 30 Sex: M Admission Date: 08/30/2016 : 1985 Attending Physician: Keke Torrez M.D. Admitting Physician: Keke Torrez M.D. Primary Care Physician: Primary Care Physician Vicki HERRERA NOTES DATE OF SERVICE: 09/05/2016 SUBJECTIVE Mr. Varner is a 30-year-old white male, who was seen today and chart was reviewed and case was discussed with the staff. He has been anxious, withdrawn, though reports doing better and has been cooperative and compliant with treatment recommendations and has been taking medications and tolerating them fairly well with no reported side effects. MENTAL STATUS EXAMINATION Young white male who was casually dressed with fair personal hygiene, appears to be in no acute distress or discomfort. He was awake and alert on interaction with intact orientation. His mood was anxious with a congruent affect. He denies any suicidal or homicidal ideations. His insight and judgment remain slightly impaired. TREATMENT PLAN We will continue on his current treatment protocol. We will monitor his response and make further adjustments as needed. Dictated by... Lenore Rios/perez TD: 09/07/2016 01:18 JOB #: [id number] [facility] PROGRESS NOTES Page 1 of 1 X Keke Torrez MD PROGRESS NOTE
--- NOTE | ~2016-08-30 | DS ---
Unit #: [id number] #: [id number] [facility] [id number] [facility] [address] [place] [address] [id number] I MR#: [id number] NAME: NINO HACKETT ROOM: 31 Age: 30 Sex: M Admission Date: 08/30/2016 : 1985 Discharge Date: 09/06/2016 Attending Physician: Keke Torrez M.D. Primary Care Physician: Primary Care Physician No DISCHARGE SUMMARY IDENTIFYING DATA Mr. Hackett is a 30-year-old white male with history of chronic mental illness, who is known to us from previous encounter, and was brought to the hospital by his family. DISCHARGE DIAGNOSES Psychiatric: Schizoaffective disorder, bipolar type, most recent episode depressed, recurrent, moderate, without psychotic features. Medical: None. Stressors: Moderate psychosocial stressors. HISTORY OF PRESENT ILLNESS Please see initial psychiatric evaluation for details. PAST PSYCHIATRIC HISTORY Please see initial psychiatric evaluation for details. PAST MEDICAL HISTORY Please see initial psychiatric evaluation for details. HOSPITAL COURSE The patient was admitted to the adult psychiatric unit at [facility] melba Gutierrez and was oriented to the hospital environment. Routine p.r.n. medications were initiated and he was started back on his home medications and medications were adjusted and he was started back on his Zyprexa, though he was seen to be very anxious, withdrawn, and seclusive to himself and BuSpar was given for anxiety. He was taking the medications regularly and was tolerating them fairly well and was able to show a fairly decent therapeutic response and as such, it was decided that he will be discharged home and will continue treatment on an outpatient basis. DISCHARGE MEDICATIONS Zyprexa 10 mg b.i.d. for depression and BuSpar 10 mg b.i.d. for anxiety. DISCHARGE CONDITION Stable. PROGNOSIS Fair. Dictated by... Keke Torrez M.D. Unit #: [id number] #: [id number] Patient: NINO HACKETT IAA/modl TD: 09/06/2016 07:28 JOB #: [id number] DISCHARGE SUMMARY Page 1 of 1 X Keke Torrez MD DISCHARGE SUMMARY
[2016-08-31 12:33] LABS: BASOPHIL% 0.4 % (0-2.5); EOSINOPHIL# 0.3 X10e3 (0-0.7); EOSINOPHIL% 4.5 % (0.0-7.0); HEMATOCRIT 42.6 % (38.0-50.0); HEMOGLOBIN 14.6 gm/dL (13.0-16.0); LYMPHOCYTE# 1.2 X10e3 (1.0-3.5); LYMPHOCYTE% 18.2 % (17.0-45.0); MEAN CELL VOLUME 95.2 FL (83-96); MEAN CORPUSCULAR HEMOGLOBIN 32.5 PG (28-34); MEAN CORPUSCULAR HGB CONC 34.2 g/dL (30-36); MEAN PLATELET VOLUME 8.1 FL (6.5-11.5); MONOCYTE# 0.5 X10e3 (0-1.0); MONOCYTE% 7.6 % (3.0-12.0); NEUTROPHIL# 4.4 X10e3 (1.5-7.1); NEUTROPHIL% 69.3 % (40-75); PLATELET COUNT 168 X10e3 (140-420); RED BLOOD COUNT 4.48 X10e (3.90-5.60); RED CELL DISTRIBUTION WIDTH 13.2 % (11.0-15.5); WHITE BLOOD COUNT 6.4 X10e3 (4.0-10.5)
[2016-08-31 12:42] LABS: DIFF IND NO
[2016-08-31 12:43] LABS: BUN/CREATININE RATIO 10.9; CALCIUM SERUM 9.4 mg/dL (8.4-10.2); CREATININE SERUM 1.1 mg/dL (0.6-1.4); GLOM FILT RATE Estimated 89.6 mL/min (>60); POTASSIUM 4.4 mmol/L (3.5-5.1); PROTEIN TOTAL SERUM 6.7 g/dL (6.0-8.3)
== END 2016-09-06 09:30 | disposition home or self-care (01) | DRG 885 ==
LOC: P1S 16:04
PROVIDERS: Psychiatry & Neurology Psychiatry
DX: F31.32 Bipolar disorder, current episode depressed, moderate (principal); F17.210 Nicotine dependence, cigarettes, uncomplicated
CPT/HCPCS: 80053; 85025